=== PATIENT | female | born 1945 | race Caucasian/White ===

== ENCOUNTER 2020-05-24 11:22 | Emergency (ER) | payer MEDICARE ==
[~2020-05-24] VITALS: Ht 160 cm; Wt 79.0 kg
[2020-05-24 12:28] VITALS: BP 176/70
[2020-05-24] MEDS ORDERED: CILOSTAZOL100 MG PO (12:29)
[2020-05-24] MEDS ORDERED: MAGNESIUM500 M1 PO (12:29)
[2020-05-24] MEDS ORDERED: ZESTRIL10 M1 PO (12:30)
[2020-05-24] MEDS ORDERED: NORVASC5 M1 PO (12:30)
[2020-05-24] MEDS ORDERED: ROSUVASTATIN CA20 MG PO (12:31)
[2020-05-24] MEDS ORDERED: ASPIRIN 81 LOW81 MG PO (12:31)
[2020-05-24] MEDS ORDERED: MONTELUKAST SOD10 MG PO (12:32)
[2020-05-24] MEDS ORDERED: CYCLOBENZAPRINE10 MG PO (13:24)
[2020-05-24] MEDS ORDERED: LORTAB 1010 MG PO (13:24)
== END 2020-05-24 13:40 | disposition home or self-care (01) ==
LOC: ED 11:22
DX: M41.86 Other forms of scoliosis, lumbar region (principal); I10 Essential (primary) hypertension

== ENCOUNTER 2022-05-18 11:46 | Emergency (ER) | payer MEDICARE ==
[~2022-05-18] VITALS: Ht 160 cm; Wt 70.0 kg
[~2022-05-18 11:46] MED LIST: ASPIRIN 81 LOW81 MG PO; CILOSTAZOL100 MG PO; CYCLOBENZAPRINE10 MG PO; LORTAB 1010 MG PO; MAGNESIUM500 M1 PO; MONTELUKAST SOD10 MG PO; NORVASC5 M1 PO; ROSUVASTATIN CA20 MG PO; ZESTRIL10 M1 PO
[2022-05-18 11:59] VITALS: BP 160/69
[2022-05-18 12:12] LABS: HEMOGLOBIN 11.3 g/dl (12.0-16.0); IMMATURE GRANULOCYTES 0.2 % (0.0-5.0); MEAN CORPUSCULAR HGB 32.6 pG CALC (26.0-32.0); MEAN CORPUSCULAR HGB CONC 33.2 g/dL CAL (32.0-36.0); NEUT# 3.75 thou/uL (2.00-7.15); RED BLOOD COUNT 3.47 mill/uL (4.20-5.60); RED CELL DISTRI WIDTH 12.6 % (11.5-15.5)
[2022-05-18 12:26] LABS: ALBUMIN 4.2 g/dL (3.2-5.0); ALKALINE PHOSPHATASE 89 u/l (38-126); ANION GAP 11 (6-22 (CALC)); BILIRUBIN, TOTAL 1.1 mg/dL (0.0-1.4); BUN 19 mg/dL (8-23); BUN/CREATININE RATIO 18 (12-20 (CALC)); CARBON DIOXIDE 29 mmol/l (22-30); CHLORIDE 104 mmol/l (95-108); GFR FOR AFR.AMER. > 60 ML/MIN (>=60 (CALC)); GFR OTHER RACES 54 ML/MIN (>=60 (CALC)); SGOT/AST 36 u/l (9-36); SODIUM 140 mmol/l (137-146); TOTAL PROTEIN 7.2 g/dL (6.3-8.2)
[2022-05-18] MEDS ORDERED: PLAVIX75 MG PO (12:30)
[2022-05-18] MEDS ORDERED: ZPAK PO (13:36)
[2022-05-18] MEDS ORDERED: CHERATUSSIN PO (13:36)
[2022-05-18 14:00] VITALS: BP 160/69
== END 2022-05-18 14:01 | disposition home or self-care (01) ==
LOC: ED 11:46
PROVIDERS: Family Medicine
DX: J06.9 Acute upper respiratory infection, unspecified (principal); I10 Essential (primary) hypertension; Z20.822 Contact with and (suspected) exposure to COVID-19; R06.02 Shortness of breath

== ENCOUNTER 2023-08-16 05:02 | Observation (INO) | payer MEDICARE ==
[2023-08-16] VITALS (28 sets, daily range): BP systolic 95–180; BP diastolic 46–84
[~2023-08-16] VITALS: Ht 160 cm; Wt 76.0 kg
[~2023-08-16 05:02] MED LIST changes: +CHERATUSSIN PO; +PLAVIX75 MG PO; +ZPAK PO
[2023-08-16] MEDS ORDERED: DOXAZOSIN1 M1 PO (05:24)
[2023-08-16] MEDS ORDERED: JARDIANCE10 MG PO (05:25)
[2023-08-16] MEDS ORDERED: ATORVASTATIN CA40 MG PO (05:27)
[2023-08-16] MEDS ORDERED: APRESOLINE50 MG PO (05:27)
[2023-08-16] MEDS ORDERED: TOPROL XL25 MG PO (05:32)
[2023-08-16] MEDS ORDERED: VITAMIN D32000 UNI2 PO (05:32)
[2023-08-16] MEDS ORDERED: NITROGLYCERIN 0.4 MG/TAB SL ONE ×3 (05:35→05:59)
[2023-08-16] MEDS ORDERED: ONDANSETRON HCl 4 MG/2 ML SDV IV ONE (05:35)
[2023-08-16] MEDS ORDERED: ASPIRIN 81 MG/TAB PO ONE (05:35)
[2023-08-16 06:24] LABS: BASO% 0.2 % (0-3); EOS% 1.1 % (0-8); HEMATOCRIT 38.9 % (37.0-47.0); HEMOGLOBIN 12.3 g/dl (12.0-16.0); IMMATURE GRANULOCYTES 0.2 % (0.0-5.0); LYMPH% 9.2 % (15-41); MEAN CELL VOLUME 98.5 fL CALC (80.0-100.0); MEAN CORPUSCULAR HGB 31.1 pG CALC (26.0-32.0); MEAN CORPUSCULAR HGB CONC 31.6 g/dL CAL (32.0-36.0); MONO% 4.4 % (2-13); NEUT# 7.57 thou/uL (2.00-7.15); NEUT% 84.9 % (42-76); RED BLOOD COUNT 3.95 mill/uL (4.20-5.60); RED CELL DISTRI WIDTH 13.8 % (11.5-15.5)
[2023-08-16 06:30] LABS: ANION GAP 11 (6-22 (CALC)); BUN 29 mg/dL (8-23); BUN/CREATININE RATIO 24 (12-20 (CALC)); CARBON DIOXIDE 24 mmol/l (22-30); CHLORIDE 110 mmol/l (95-108); CREATININE 1.2 mg/dL (0.5-1.0); GFR FOR AFR.AMER. 52 ML/MIN (>=60 (CALC)); GFR OTHER RACES 43 ML/MIN (>=60 (CALC)); SODIUM 141 mmol/l (137-146)
[2023-08-16 06:32] LABS: POTASSIUM 3.9 mmol/l (3.5-5.1)
[2023-08-16] MEDS ORDERED: SODIUM CHLORIDE 0.9% 1,000 ML IV ONE (06:55)
[2023-08-16] MEDS ORDERED: MORPHINE SULFATE 4 MG/ML VIAL IV ONE (06:55)
[2023-08-16] MEDS ORDERED: ENOXAPARIN SODIUM 100 MG/ML SYR SC ONE ×2 (08:40→08:50)
[2023-08-16] MEDS ORDERED: NITROGLYCERIN 0.4 MG/TAB SL PRN (10:05)
[2023-08-16] MEDS ORDERED: MAGNESIUM HYDROXIDE 30 ML UDC PO PRN (10:05)
[2023-08-16] MEDS ORDERED: ACETAMINOPHEN 325 MG/TAB PO PRN (10:05)
[2023-08-16] MEDS ORDERED: amLODIPine BESYLATE 5 MG/TAB PO SCH (11:00)
[2023-08-16] MEDS ORDERED: MONTELUKAST SODIUM 10 MG/TAB PO SCH (11:00)
[2023-08-16] MEDS ORDERED: Cholecalciferol 2,000 UNIT/TAB PO SCH (11:00)
[2023-08-16] MEDS ORDERED: CLOPIDOGREL BISULFATE 75 MG/TAB TAB PO SCH (11:00)
[2023-08-16] MEDS ORDERED: hydrALAZINE HCL 25 MG/TAB PO SCH (11:00)
[2023-08-16] MEDS ORDERED: METOPROLOL SUCCINATE 25 MG/TAB-TOPROL XL PO SCH (11:00)
[2023-08-16] MEDS ORDERED: ATORVASTATIN CALCIUM 40 MG/TAB PO SCH (21:00)
[2023-08-16] MEDS ORDERED: ENOXAPARIN SODIUM 80 MG/0.8 ML SYR SC SCH (21:00)
[2023-08-17] VITALS (9 sets, daily range): BP systolic 121–149; BP diastolic 46–65
[2023-08-17 06:00] LABS: BASO% 0.4 % (0-3); EOS% 0.4 % (0-8); HEMATOCRIT 34.3 % (37.0-47.0); HEMOGLOBIN 10.7 g/dl (12.0-16.0); IMMATURE GRANULOCYTES 0.2 % (0.0-5.0); LYMPH% 14.9 % (15-41); MEAN CELL VOLUME 99.4 fL CALC (80.0-100.0); MEAN CORPUSCULAR HGB CONC 31.2 g/dL CAL (32.0-36.0); MONO% 8.4 % (2-13); NEUT# 3.95 thou/uL (2.00-7.15); NEUT% 75.7 % (42-76); RED BLOOD COUNT 3.45 mill/uL (4.20-5.60); RED CELL DISTRI WIDTH 14.2 % (11.5-15.5)
[2023-08-17 06:17] LABS: ALBUMIN 3.3 g/dL (3.2-5.0); BILIRUBIN, TOTAL 3.5 mg/dL (0.02-1.3); CREATININE 1.1 mg/dL (0.5-1.0); MAGNESIUM 2.1 mg/dL (1.6-2.3); POTASSIUM 3.8 mmol/l (3.5-5.1); TOTAL PROTEIN 5.5 g/dL (6.3-8.2)
[2023-08-17] MEDS ORDERED: ASPIRIN 81 MG/TAB PO SCH (09:00)
[2023-08-17] MEDS ORDERED: SODIUM CHLORIDE 0.9% 1,000 ML IV PRN (09:30)
[2023-08-17] MEDS ORDERED: DOXYCYCLINE HYCLATE 100 MG in SODIUM CHLORIDE 0.9% 100 ML IV SCH (11:00)
[2023-08-17] MEDS ORDERED: GUAIFENESIN 600 MG/TAB PO SCH (11:00)
[2023-08-17] MEDS ORDERED: METOPROLOL TARTRATE 5 MG/5 ML VIAL IV SCH (12:00)
[2023-08-17] MEDS ORDERED: Polyethylene Glycol 3350 17 GM/PKT PO PRN (13:55)
[2023-08-17] MEDS ORDERED: DOCUSATE CALCIUM 240 MG/CAP PO PRN (13:55)
[2023-08-17] MEDS ORDERED: dilTIAZem HCl EXTENDED RELEASE 120 MG CAP PO SCH (17:25)
[2023-08-17] MEDS ORDERED: [UNRECOGNIZED DRUG - REMARK] PO PRN (17:50)
[2023-08-17] MEDS ORDERED: APIXABAN BASE 5 MG TAB PO SCH (21:00)
[2023-08-18] VITALS (40 sets, daily range): BP systolic 80–147; BP diastolic 41–111
[2023-08-18] MEDS ORDERED: METOPROLOL TARTRATE 5 MG/5 ML VIAL IV SCH (00:15)
[2023-08-18] MEDS ORDERED: DILTIAZEM HCL 125 MG in SODIUM CHLORIDE 0.9% 100 ML IV PRN (02:45)
[2023-08-18] MEDS ORDERED: dilTIAZem HCL 50 MG/10 ML SDV IV SCH (02:50)
[2023-08-18 04:44] LABS: BASO% 0.2 % (0-3); EOS% 0.8 % (0-8); HEMATOCRIT 32.6 % (37.0-47.0); HEMOGLOBIN 10.3 g/dl (12.0-16.0); IMMATURE GRANULOCYTES 0.2 % (0.0-5.0); LYMPH% 17.5 % (15-41); MEAN CORPUSCULAR HGB 31.6 pG CALC (26.0-32.0); MEAN CORPUSCULAR HGB CONC 31.6 g/dL CAL (32.0-36.0); MONO% 6.8 % (2-13); NEUT# 3.63 thou/uL (2.00-7.15); NEUT% 74.5 % (42-76); RED BLOOD COUNT 3.26 mill/uL (4.20-5.60)
[2023-08-18 05:23] LABS: CREATININE 1.1 mg/dL (0.5-1.0); MAGNESIUM 2.1 mg/dL (1.6-2.3); POTASSIUM 3.8 mmol/l (3.5-5.1)
[2023-08-18] MEDS ORDERED: POTASSIUM CHLORIDE 20 MEQ/TAB PO SCH (11:00)
[2023-08-18] MEDS ORDERED: [UNRECOGNIZED DRUG - OTHER] PO ×2 (13:18→13:57)
[2023-08-18] MEDS ORDERED: XARELTO15 MG PO ×2 (13:20→13:57)
[2023-08-18] MEDS ORDERED: OMNICEF300 M1 PO ×2 (13:34→13:57)
[2023-08-18] MEDS ORDERED: dilTIAZem HCl EXTENDED RELEASE 120 MG CAP PO SCH (14:00)
== END 2023-08-18 14:53 | disposition home or self-care (01) ==
LOC: ED 05:02 → ED-I 08:36 → ED 08:52 → ED-I 08:53 → MS2 18:07 → ICU 08-18 02:25
PROVIDERS: Family Medicine; ADMIT Student in an Organized Health Care Education/Training Program; ATTEND Student in an Organized Health Care Education/Training Program
DX: R07.89 Other chest pain (principal); I48.91 Unspecified atrial fibrillation; J06.9 Acute upper respiratory infection, unspecified; I12.9 Hypertensive chronic kidney disease with stage 1 through stage 4 chronic kidney disease, or unspecified chronic kidney disease; N18.31 Chronic kidney disease, stage 3a; J44.9 Chronic obstructive pulmonary disease, unspecified; I73.9 Peripheral vascular disease, unspecified; E78.5 Hyperlipidemia, unspecified; F40.240 Claustrophobia; Z95.820 Peripheral vascular angioplasty status with implants and grafts; Z66 Do not resuscitate; Z79.01 Long term (current) use of anticoagulants
CPT/HCPCS: J1650